=== PATIENT | female | born 1940 | race Caucasian/White ===

== ENCOUNTER 2021-09-04 13:37 | Outpatient (CLI) | payer MEDICARE, OTHER ==
[2021-09-04 14:35] LABS: Hemoglobin 11.3 g/dL (12.0-15.5); Mean Corpuscular HGB CONC 31.5 g/dL (32.0-36.0); Mean Corpuscular Hemoglobin 26.4 pg (27.0-33.0); Mean Corpuscular Volume 83.9 fl (81.6-98.3); Platelet Count 184 10x3/uL (150-450); RBC Distribution Width 14.9 % (11.5-14.5); Red Blood Cell (RBC) Count 4.28 10x6/uL (3.90-5.03); White Blood Cell (WBC) Count 7.5 10x3/uL (3.5-10.5)
[2021-09-04 14:55] LABS: INR-International Normal Ratio 0.9; PTT 25.6 sec (22.0-33.0); Prothrombin Time 10.3 sec (9.5-12.1)
[2021-09-04 15:02] LABS: Anion Gap 14 mmol/L (10-20); BUN (Urea Nitrogen) 16 mg/dL (9.8-20.1); Calc. Creatinine Clearance 0 mL/min (70-130); Calcium 9.2 mg/dL (7.8-10.44); Carbon Dioxide 22 mmol/L (23-31); Chloride 106 mmol/L (98-107); Glucose 120 mg/dL (83-110); Potassium 3.8 mmol/L (3.5-5.1); Sodium 138 mmol/L (136-145)
[2021-09-04 23:44] LABS: SARS-CoV-2 PCR by NAA Not Detected (NotDetected)
== END 2021-09-04 13:38 | disposition home or self-care (01) ==
LOC: LABBT 13:37
PROVIDERS: ATTEND Neurological Surgery
DX: Z01.818 Encounter for other preprocedural examination (principal); M50.222 Other cervical disc displacement at C5-C6 level; Z20.822 Contact with and (suspected) exposure to COVID-19
CPT/HCPCS: 80048; 85027; 85610; 85730; 93005; U0003; U0005; 93010

== ENCOUNTER 2021-09-07 10:33 | Observation (INO) | payer MEDICARE, OTHER ==
[2021-09-04 11:12] VITALS: BMI 26.1
[2021-09-07] MEDS ORDERED: Thrombin 5000 UNITS/5 ML VIAL ONE (10:53)
[2021-09-07] MEDS ORDERED: Neomycin-Polymyxin 1 ML AMP ONE (10:53)
[2021-09-07] MEDS ORDERED: Lidocaine 1% MPF 2 ML VIAL ONE (11:59)
[2021-09-07] MEDS ORDERED: Fentanyl 100 MCG/2 ML VIAL ONE ×2 (12:26→17:10)
[2021-09-07] MEDS ORDERED: ceFAZolin (BATCH) 2 GM/100 ML BAG ONE (12:36)
[2021-09-07] MEDS ORDERED: Rocuronium Bromide 10 MG/ML (10ML VIAL) ONE (12:46)
[2021-09-07] MEDS ORDERED: Ondansetron PF 4 MG/2 ML Vial ONE (12:46)
[2021-09-07] MEDS ORDERED: Lidocaine 1% PF 5 ML VIAL ONE (12:46)
[2021-09-07] MEDS ORDERED: PROPOFOL 200 MG/20 ML VIAL ONE (12:46)
[2021-09-07] MEDS ORDERED: PHENYLEPHRINE-NS 100 MCG/ML 10 ML SYRINGE ONE (12:46)
[2021-09-07] MEDS ORDERED: SUGAMMADEX SODIUM 200 MG/2 ML VIAL ONE (15:29)
[2021-09-07] MEDS ORDERED: Bisacodyl 10 MG SUPP PR PRN (17:12)
[2021-09-07] MEDS ORDERED: diphenhydrAMINE 50 MG/ML VIAL IVP PRN (17:12)
[2021-09-07] MEDS ORDERED: Acetaminophen 325 MG TAB PO PRN (17:12)
[2021-09-07] MEDS ORDERED: HYDROcodone/Acetaminophen 10/325 mg Tablet PO PRN (17:12)
[2021-09-07] MEDS ORDERED: HYDROcodone/Acetaminophen 7.5/325 mg Tablet PO PRN (17:12)
[2021-09-07] MEDS ORDERED: Cyclobenzaprine 10 MG TAB PO PRN (17:12)
[2021-09-07] MEDS ORDERED: Promethazine 25 MG TAB PO PRN (17:12)
[2021-09-07] MEDS ORDERED: Mag-Al 1200 mg/1200 mg/30 ML UDCUP PO PRN (17:12)
[2021-09-07] MEDS ORDERED: Milk Of Magnesia 30 ML UDCUP PO PRN (17:12)
[2021-09-07] MEDS ORDERED: Ondansetron PF 4 MG/2 ML Vial IVP PRN (17:12)
[2021-09-07] MEDS ORDERED: Acetaminophen/Codeine 30-300mg Tablet PO PRN (17:12)
[2021-09-07] MEDS ORDERED: Morphine 4 MG/ML VIAL SLOW IVP PRN (17:23)
[2021-09-07] MEDS ORDERED: Cyclobenzaprine 10 MG TAB ONE (17:33)
[2021-09-07] MEDS: Sodium Chloride 0.9% 1,000 ML IV SCH ×2 (20:36→21:52)
[2021-09-07] MEDS: Gabapentin 300 MG CAP PO SCH (20:36)
[2021-09-07] MEDS: hydrALAZINE 25 MG TAB PO SCH (20:36)
[2021-09-07] MEDS: CEFAZOLIN 2 GM, Admixture Fee 1 EACH in Sodium Chloride 0.9% 100 ML IVPB SCH (20:39)
[2021-09-07] MEDS ORDERED: Rosuvastatin 5 MG TAB PO SCH (21:00)
[2021-09-08] MEDS: CEFAZOLIN 2 GM, Admixture Fee 1 EACH in Sodium Chloride 0.9% 100 ML IVPB SCH (05:54)
[2021-09-08] MEDS ORDERED: Levothyroxine Sodium 25 MCG TAB PO SCH (06:00)
[2021-09-08 08:38] VITALS: TEMP 98.7
[2021-09-08] MEDS: Gabapentin 300 MG CAP PO SCH (08:39)
[2021-09-08] MEDS: hydrALAZINE 25 MG TAB PO SCH (08:41)
[2021-09-08 08:42] VITALS: BP 123/70
[2021-09-08] MEDS ORDERED: Losartan 25 MG TAB PO SCH (09:00)
[2021-09-08] MEDS ORDERED: Spironolactone 25 MG TAB PO SCH (09:00)
== END 2021-09-08 10:30 | disposition home or self-care (01) ==
LOC: SDC 10:33 → SURG A 17:16
PROVIDERS: ADMIT Neurological Surgery; ATTEND Neurological Surgery
PROC: 0RG20A0 Fusion of 2 or more Cervical Vertebral Joints with Interbody Fusion Device, Anterior Approach, Anterior Column, Open Approach (ICD-10-PCS; principal; 2021-09-07)
DX: M50.122 Cervical disc disorder at C5-C6 level with radiculopathy (principal); M50.023 Cervical disc disorder at C6-C7 level with myelopathy; M43.16 Spondylolisthesis, lumbar region; M48.062 Spinal stenosis, lumbar region with neurogenic claudication; M48.02 Spinal stenosis, cervical region; E78.00 Pure hypercholesterolemia, unspecified; I25.10 Atherosclerotic heart disease of native coronary artery without angina pectoris; I10 Essential (primary) hypertension; Z79.890 Hormone replacement therapy; Z79.899 Other long term (current) drug therapy; Z95.1 Presence of aortocoronary bypass graft; Z95.5 Presence of coronary angioplasty implant and graft
CPT/HCPCS: 20930; 20936; 22551; 22552; 22853 ×2; 76000; C1713 ×4; C1776; 96365; 96366; G0378; J0690; J1642; J2405; J2704; J3010; J3490